=== PATIENT | male | born 1950 | race Caucasian/White ===

== ENCOUNTER → 2017-07-21 | Outpatient (CLI) | payer MEDICARE, MEDICAID, OTHER ==
--- NOTE | 2017-07-21 11:50 | RAD ---
Calcaneus, 2 views, 07/21/2017: History: Heel pain There is a moderate sized inferior calcaneal spur. There is also moderate spurring at the Achilles tendon insertion site posteriorly. No fracture is identified. There is mild spurring at the calcaneocuboid articulation. There is moderate nonspecific subcutaneous edema along the plantar aspect of the heel. IMPRESSION: 1. Moderate sized inferior calcaneal spur. 2. No acute bony abnormality is detected.
== END | disposition home or self-care (01) ==
LOC: DXRADRC 11:00
PROVIDERS: ATTEND Physician Assistant
DX: M77.31 Calcaneal spur, right foot (principal)
CPT/HCPCS: 73650

== ENCOUNTER 2019-07-16 01:41 | Emergency (ER) | payer MEDICARE, OTHER, MEDICAID ==
--- NOTE | 2019-07-16 02:00 | PHYS DOC ---
Adult General Chief Complaint Chief Complaint: URINARY RETENTION HPI HPI Patient is a 68-year-old male who presents with complaint of urinary retention. Patient had recently been seen at for the same complaint and has been self cathetering since that time. He states that this evening when he went to insert the catheter, he states that he encountered a blood clot and was not able to relieve himself of urine. He states the last time that he had inserted the catheter and had good return of urine was at about 3 PM yesterday. He does report to some very mild discomfort that he describes as like an itch to eat cat scratch in the catheter region. He is not aware of having cause any trauma with any of his previous catheterizations and reported no significant discomfort with catheterizing.[] Review of Systems Review of Systems Constitutional: Denies fever or chills [] Respiratory: Denies cough or shortness of breath [] Cardiovascular: No additional information not addressed in HPI [] : Positive urinary retention and hematuria [] Musculoskeletal: Denies back pain or joint pain [] Physical Exam Physical Exam Constitutional: Well developed, well nourished, no acute distress, non-toxic appearance. [] Cardiovascular:Heart rate regular rhythm, no murmur [] Lungs & Thorax: Bilateral breath sounds clear to auscultation [] Abdomen: Bowel sounds normal, soft, no tenderness. [] Skin: Warm, dry, no erythema, no rash. [] Neurologic: Alert and oriented X 3, no focal deficits noted. [] EKG EKG [] Radiology/Procedures Radiology/Procedures [] Course & Med Decision Making Course & Med Decision Making Pertinent Labs and Imaging studies reviewed. (See chart for details) [] Dragon Disclaimer Dragon Disclaimer This electronic medical record was generated, in whole or in part, using a voice recognition dictation system. Departure Departure: Impression: Primary Impression: Urinary retention Additional Impression: UTI (urinary tract infection) Disposition: 01 HOME, SELF-CARE Condition: STABLE Referrals: GILMA MEANS MD (PCP) Patient Instructions: Urinary Tract Infection Scripts Sulfamethoxazole/Trimethoprim (BACTRIM DS TABLET) 1 Each Tablet 1 TAB PO BID for infection, #20 TAB Prov: VERÓNICA BETANCOURT Jr. DO 07/16/19 Problem Qualifiers Additional Impression: UTI (urinary tract infection) Urinary tract infection type: site unspecified Hematuria presence: with hematuria Qualified Codes: N39.0 - Urinary tract infection, site not specified; R31.9 - Hematuria, unspecified VERÓNICA BETANCOURT Jr. DO Jul 16, 2019 02:00
[2019-07-16 03:27] LABS: BACTERIA,URINE FEW /HPF (0-FEW); BILIRUBIN,URINE NEG (NEG); CLARITY,URINE CLOUDY; COLOR,URINE BROWN; GLUCOSE,URINE NEG (NEG); NITRITE,URINE POS (NEG); RBC,URINE >40 /HPF (0-2); UROBILINOGEN,URINE 0.2 mg/dL (0.2 mg/dL); WBC,URINE >40 /HPF (0-4)
[2019-07-16 03:28] LABS: SQUAMOUS EPITHELIAL CELL,UR OCC /LPF
[2019-07-16] MEDS ORDERED: SULF1TAB24 PO (03:32)
[2019-07-16] MEDS ORDERED: SMZ/TMP 800/160MG TABLET. PO ONE (03:45)
[2019-07-18 03:30] VITALS: BP 146/76
== END 2019-07-16 03:40 | disposition home or self-care (01) ==
LOC: ER 01:41
DX: N39.0 Urinary tract infection, site not specified (principal); R31.9 Hematuria, unspecified; R33.9 Retention of urine, unspecified
CPT/HCPCS: 51702; 81001; 87086; 99284

== ENCOUNTER 2019-07-17 13:05 | Emergency (ER) | payer MEDICARE, OTHER, MEDICAID ==
[~2019-07-17] VITALS: Ht 177.8 cm; Wt 95.0 kg
[~2019-07-17 13:05] MED LIST: SULF1TAB24 PO
[2019-07-17] MEDS ORDERED: IV NORMAL SALINE 1,000ML 1,000 ML IV ONE (13:45)
--- NOTE | 2019-07-17 13:56 | PHYS DOC ---
Past History Past Medical History: Prostatitis Past Surgical History: Other Additional Past Surgical Histo: Prostat Alcohol Use: None Drug Use: None Adult General Chief Complaint Chief Complaint: URINE CATHETER PROBLEM HPI HPI 68-year-old male presents with penile pain. He was seen in this facility about a day and half ago with urinary retention. A Muniz was placed and he was treated for UTI. He was treated with Bactrim. Patient presents today because his penis is very painful. He states that even slight touch is uncomfortable. It is very uncomfortable when he tries to walk in the catheter moves around. He denies fever or chills. He has no other complaints. He has been taking his antibiotics. Review of Systems Review of Systems Constitutional: Denies fever or chills [] Eyes: Denies change in visual acuity, redness, or eye pain [] HENT: Denies nasal congestion or sore throat [] Respiratory: Denies cough or shortness of breath [] Cardiovascular: No additional information not addressed in HPI [] GI: Denies abdominal pain, nausea, vomiting, bloody stools or diarrhea [] : Penis pain[] Musculoskeletal: Denies back pain or joint pain [] Integument: Denies rash or skin lesions [] Neurologic: Denies headache, focal weakness or sensory changes [] Endocrine: Denies polyuria or polydipsia [] All other systems were reviewed and found to be within normal limits, except as documented in this note. Current Medications Current Medications Current Medications Medications (Trade) Dose Ordered Sig/Aramis Start Time Stop Time Status Last Admin Dose Admin Sodium Chloride 1,000 ml @ 1,000 mls/hr 1X ONCE 07/17/19 13:45 07/17/19 14:44 Allergies Allergies Allergies Coded Allergies Type Severity Reaction Last Updated Verified Penicillins Allergy Unknown 07/17/19 Yes Physical Exam Physical Exam Constitutional: Well developed, well nourished, no acute distress, non-toxic appearance. [] HENT: Normocephalic, atraumatic, bilateral external ears normal, oropharynx moist, no oral exudates, nose normal. [] Eyes: PERRLA, EOMI, conjunctiva normal, no discharge. [] Neck: Normal range of motion, no tenderness, supple, no stridor. [] Cardiovascular:Heart rate regular rhythm, no murmur [] Lungs & Thorax: Bilateral breath sounds clear to auscultation [] Abdomen: Bowel sounds normal, soft, no tenderness, no masses, no pulsatile masses. [] Skin: Warm, dry, no erythema, no rash. [] Back: No tenderness, no CVA tenderness. [] Extremities: No tenderness, no cyanosis, no clubbing, ROM intact, no edema. [] Neurologic: Alert and oriented X 3, normal motor function, normal sensory function, no focal deficits noted. [] Psychologic: Affect normal, judgement normal, mood normal. : Normal external exam, circumcised. Tenderness of the sterling and tip of penis. No discharge or bleeding.[] Current Patient Data Vital Signs Vital Signs Date Time Temp Pulse Resp B/P (MAP) Pulse Ox O2 Delivery O2 Flow Rate FiO2 07/17/19 13:26 97.8 70 18 96 Room Air EKG EKG [] Radiology/Procedures Radiology/Procedures [] Course & Med Decision Making Course & Med Decision Making Pertinent Labs and Imaging studies reviewed. (See chart for details) The patient's labs are unremarkable. His urine is still suggestive of UTI, but he has less bacteria. The patient is not taken and buttocks long enough to be certain if current treatment will work or not. The patient's pain is likely due to the irritation of the catheter. We have removed the catheter for comfort. The patient has not urinated in the ED, but would like to go home and see how things go. His bladder scan showed under 200 mL. He is stable for discharge at this time. [] Dragon Disclaimer Dragon Disclaimer This electronic medical record was generated, in whole or in part, using a voice recognition dictation system. Departure Departure: Impression: Primary Impression: Urinary catheter complication Additional Impression: Penis pain Disposition: HOME, SELF-CARE Condition: STABLE Referrals: GILMA MEANS MD (PCP) Problem Qualifiers EZIO CARDENAS DO Jul 17, 2019 13:56
[2019-07-17 14:10] LABS: BASO % 1 % (0-3); EOS # 0.2 x10^3/uL (0.0-0.7); EOS % 2 % (0-3); HEMATOCRIT 48.3 % (39.0-53.0); HEMOGLOBIN 16.3 g/dL (13.0-17.5); LYMPH # 0.5 x10^3/uL (1.0-4.8); LYMPH % 5 % (24-48); MEAN CORPUSCULAR HEMOGLOBIN 32 pg (25-35); MEAN CORPUSCULAR HGB CONC 34 g/dL (31-37); MEAN CORPUSCULAR VOLUME 96 fL (79-100); MONO % 10 % (0-9); NEUT % 83 % (31-73); PLATELET COUNT 228 x10^3/uL (140-400); RED BLOOD COUNT 5.02 x10^6/uL (4.30-5.70); RED CELL DISTRIBUTION WIDTH 14.3 % (11.5-14.5); WHITE BLOOD COUNT 9.7 x10^3/uL (4.0-11.0)
[2019-07-17 14:23] LABS: BACTERIA,URINE FEW /HPF (0-FEW); BILIRUBIN,URINE NEG (NEG); CLARITY,URINE CLOUDY; COLOR,URINE YELLOW; GLUCOSE,URINE NEG (NEG); NITRITE,URINE NEG (NEG); RBC,URINE >40 /HPF (0-2); SQUAMOUS EPITHELIAL CELL,UR OCC /LPF; UROBILINOGEN,URINE 0.2 mg/dL (0.2 mg/dL); WBC,URINE 20-40 /HPF (0-4)
[2019-07-17 14:23] LABS: ALBUMIN 3.6 g/dL (3.4-5.0); ALBUMIN/GLOBULIN RATIO 0.9 (1.0-1.7); CALCIUM 9.1 mg/dL (8.5-10.1); CREATININE 1.2 mg/dL (0.7-1.3); GFR 60.4; POTASSIUM 4.3 mmol/L (3.5-5.1); TOTAL BILIRUBIN 1.1 mg/dL (0.2-1.0); TOTAL PROTEIN 7.8 g/dL (6.4-8.2)
[2019-07-17 16:31] VITALS: BP 117/69
== END 2019-07-17 16:46 | disposition home or self-care (01) ==
LOC: ER 13:05
DX: T83.098A Other mechanical complication of other urinary catheter, initial encounter (principal); N48.89 Other specified disorders of penis; R33.9 Retention of urine, unspecified; Z88.0 Allergy status to penicillin
CPT/HCPCS: 36415; 80053; 81001; 85025; 99285-25; J7030

== ENCOUNTER 2019-07-17 19:31 | Emergency (ER) | payer MEDICARE, MEDICAID ==
[~2019-07-17] VITALS: Ht 177.8 cm; Wt 95.0 kg
--- NOTE | 2019-07-17 19:56 | ED.ADGEN ---
Past History Past Medical History: Prostatitis, UTI Past Surgical History: Other Additional Past Surgical Histo: Prostat Alcohol Use: None Drug Use: None Adult General Chief Complaint Chief Complaint "...I got to have the freire back in... " HPI HPI Patient is a 68 year old male who presents with above hx and complaints urinary retention after Freire removed. Patient does have follow-up urology. Pt currently on antibiotics for UTI. Patient has had problems of prior prostate issues. Review of Systems Review of Systems Constitutional: Denies fever or chills [] Eyes: Denies change in visual acuity, redness, or eye pain [] HENT: Denies nasal congestion or sore throat [] Respiratory: Denies cough or shortness of breath [] Cardiovascular: No additional information not addressed in HPI [] GI: Distended bladder and lower pelvic abdominal pain. Denies, nausea, vomiting, bloody stools or diarrhea [] : Complaints of dysuria and urinary retention Musculoskeletal: Denies back pain or joint pain [] Integument: Denies rash or skin lesions [] Neurologic: Denies headache, focal weakness or sensory changes [] Endocrine: Denies polyuria or polydipsia [] All other systems were reviewed and found to be within normal limits, except as documented in this note. Family History Family History Noncontributory Current Medications Current Medications Current Medications Medications (Trade) Dose Ordered Sig/Aramis Start Time Stop Time Status Last Admin Dose Admin Phenazopyridine HCl (Pyridium) 200 mg 1X ONCE 07/17/19 20:00 07/17/19 20:01 DC 07/17/19 20:32 200 MG Allergies Allergies Allergies Coded Allergies Type Severity Reaction Last Updated Verified Penicillins Allergy Unknown 07/17/19 Yes Physical Exam Physical Exam Constitutional: inacute distress, non-toxic appearance. [] HENT: Normocephalic, atraumatic, bilateral external ears normal, oropharynx moist, no oral exudates, nose normal. [] Eyes: PERRLA, EOMI, conjunctiva normal, no discharge. [] Neck: Normal range of motion, no tenderness, supple, no stridor. [] Cardiovascular:Heart rate regular rhythm, no murmur []PMI to the left Lungs & Thorax: Bilateral breath sounds equal at apex on auscultation [] Abdomen: Bowel sounds normal, soft, suprapubic tenderness, distended bladder, no masses, no pulsatile masses. [] Circumcised male. Patient declines rectal exam Skin: Warm, dry, no erythema, no rash. [] Back: No tenderness, no CVA tenderness. [] Extremities: No tenderness, no cyanosis, no clubbing, ROM intact, no edema. [] Arthritic changes. Neurologic: Alert and oriented X 3, normal motor function, normal sensory function, no focal deficits noted. [] Psychologic: Affect anxious, judgement normal, mood normal. [] Current Patient Data Vital Signs Vital Signs Date Time Temp Pulse Resp B/P (MAP) Pulse Ox O2 Delivery O2 Flow Rate FiO2 07/17/19 21:34 76 18 143/76 (98) 98 Room Air 07/17/19 19:50 97.9 Lab Results Laboratory Tests Test 07/17/19 20:14 Urine Collection Type U cath Urine Color Yellow Urine Clarity Hazy Urine pH 6.0 Urine Specific [place] 1.020 Urine Protein Trace (NEG-TRACE) Urine Glucose (UA) Neg mg/dL (NEG) Urine Ketones (Stick) Neg mg/dL (NEG) Urine Blood Mod (NEG) Urine Nitrite Neg (NEG) Urine Bilirubin Neg (NEG) Urine Urobilinogen Dipstick 0.2 mg/dL (0.2 mg/dL) Urine Leukocyte Esterase Trace (NEG) Urine RBC >40 /HPF (0-2) Urine WBC 11-20 /HPF (0-4) Urine Squamous Epithelial Cells Occ /LPF Urine Bacteria Mod /HPF (0-FEW) Urine Mucus Slight /LPF EKG EKG [] Radiology/Procedures Radiology/Procedures [] Course & Med Decision Making Course & Med Decision Making Pertinent Labs and Imaging studies reviewed. (See chart for details) Freire placed with return of approximately 500 mL immediately with relief of his lower pelvic abdomen pain. Patient to take antibiotics as previously directed. Patient keep follow-up with urology. Patient consider over the counter use of Pyridium for Freire discomfort. Return if any concerns. [] Final Impression Final Impression 1. Urinary Retention 2. UTI[] Dragon Disclaimer Dragon Disclaimer This electronic medical record was generated, in whole or in part, using a voice recognition dictation system. Dragon Disclaimer This chart was dictated in whole or in part using Voice Recognition software in a busy, high-work load, and often noisy Emergency Department environment. It may contain unintended and wholly unrecognized errors or omissions. CHRISTOPHER COSTELLO MD Jul 17, 2019 19:56
[2019-07-17] MEDS ORDERED: PHENAZOPYRIDINE 200 MG TABLET. PO ONE (20:00)
[2019-07-17 21:08] LABS: BILIRUBIN,URINE NEG (NEG); CLARITY,URINE HAZY; COLOR,URINE YELLOW; GLUCOSE,URINE NEG (NEG); NITRITE,URINE NEG (NEG); RBC,URINE >40 /HPF (0-2); UROBILINOGEN,URINE 0.2 mg/dL (0.2 mg/dL)
[2019-07-17 21:09] LABS: BACTERIA,URINE MOD /HPF (0-FEW); SQUAMOUS EPITHELIAL CELL,UR OCC /LPF
[2019-07-17 21:34] VITALS: BP 143/76
== END 2019-07-17 21:42 | disposition home or self-care (01) ==
LOC: ER 19:31
DX: N39.0 Urinary tract infection, site not specified (principal); R33.9 Retention of urine, unspecified; Z87.440 Personal history of urinary (tract) infections; Z88.0 Allergy status to penicillin
CPT/HCPCS: 51702; 81001; 87086; 99284

== ENCOUNTER 2019-11-01 16:57 | Emergency (ER) | payer MEDICARE, MEDICAID ==
[~2019-11-01] VITALS: Ht 177.8 cm; Wt 95.0 kg
[2019-11-01 17:19] VITALS: BP 138/61
--- NOTE | 2019-11-01 17:42 | PHYS DOC ---
Past History Past Medical History: Prostatitis Past Surgical History: Other Additional Past Surgical Histo: Prostat Alcohol Use: None Drug Use: None Adult General Chief Complaint Chief Complaint: TESTICULAR PAIN OR INJURY HPI HPI Patient is a 68-year-old male who presented to ER today for evaluation of left t esticular pain and swelling that he first noted at 9 a.m. this morning. Patient denies any fever, no nausea vomiting, no abdominal pain. Patient had prostate surgery 2 months ago at [facility]. he denies any penile discharge, no urine symptom, no painful urination. aLL OTHER ros IS NEGATIVE UNLESS OTHERWISE NOTED IN hpi Review of Systems Review of Systems See above Current Medications Current Medications Current Medications Medications (Trade) Dose Ordered Sig/Aramis Start Time Stop Time Status Last Admin Dose Admin Ketorolac Tromethamine (Toradol Im) 60 mg 1X ONCE 11/01/19 17:45 11/01/19 17:46 Allergies Allergies Allergies Coded Allergies Type Severity Reaction Last Updated Verified Penicillins Allergy Unknown 07/17/19 Yes Physical Exam Physical Exam See above Constitutional: Well developed, well nourished, no acute distress, non-toxic appearance. [] HENT: Normocephalic, atraumatic, bilateral external ears normal, oropharynx moist, no oral exudates, nose normal. [] Eyes: PERRLA, EOMI, conjunctiva normal, no discharge. [] Neck: Normal range of motion, no tenderness, supple, no stridor. [] Cardiovascular:Heart rate regular rhythm, no murmur [] Lungs & Thorax: Bilateral breath sounds clear to auscultation [] Abdomen: Bowel sounds normal, soft, no tenderness, no masses, no pulsatile masses. [] Skin: Warm, dry, no erythema, no rash. [] Back: No tenderness, no CVA tenderness. [] Extremities: No tenderness, no cyanosis, no clubbing, ROM intact, no edema. [] Neurologic: Alert and oriented X 3, normal motor function, normal sensory function, no focal deficits noted. [] Psychologic: Affect normal, judgement normal, mood normal. [] : CIRCUMCIZED, LEFT TESTICULAR IS TENDER TO PALPATION, LEFT SCROTUM IS MILD SWOLLEN AND ERYTHEMA. NO PENILE DISCHARGE. Current Patient Data Vital Signs Vital Signs Date Time Temp Pulse Resp B/P (MAP) Pulse Ox O2 Delivery O2 Flow Rate FiO2 11/01/19 17:19 98.5 74 18 99 EKG EKG [] Radiology/Procedures Radiology/Procedures [][place] [address] IMAGING REPORT Signed PATIENT: PARVEEN MALDONADOOUNT: [id number] : 1950 LOCATION: ER AGE: 68 SEX: M EXAM STATUS: REG ER ORD. PHYSICIAN: JATINDER LSOAN DO REASON: LEFT TESTICULAR PAIN SINCE 9 AM TODAY PROCEDURE: TESTICULAR/SCROTUM Testicular ultrasound and ultrasound testicular Doppler with spectral analysis HISTORY: Left testicular pain since 9:00 AM Sonographic examination of scrotal contents and testes was performed and multiple static images were obtained. There is mild hydroceles bilaterally. The testes appear normal with normal blood flow. The right testis measures 4.0 x 2.9 x 2.5 cm. Left testis measures 4.2 x 2.2 x 3 x 2 cm. There is a small epididymal cyst on the right. IMPRESSION: Small hydroceles bilaterally. No significant findings. Electronically signed by: Marta Shabazz III, MD (11/01/2019 5:56 PM) [facility] DICTATED AND SIGNED BY: MARTA SHABAZZ III, MD DATE: 11/01/19 724 CC: YFN SHEPHERD; JATINDER SLOAN DO ~ Course & Med Decision Making Course & Med Decision Making Pertinent Labs and Imaging studies reviewed. (See chart for details) Patient said he felt much better after toradol shot. Dragon Disclaimer Dragon Disclaimer This electronic medical record was generated, in whole or in part, using a voice recognition dictation system. Departure Departure: Impression: Primary Impression: Cellulitis, scrotum Disposition: HOME, SELF-CARE Condition: STABLE Referrals: YFN SHEPHERD (PCP) follow up with your doctor on Tuesday Patient Instructions: Cellulitis, Scrotal Swelling Scripts Doxycycline Hyclate (DOXYCYCLINE HYCLATE) 100 Mg Capsule 1 CAP PO BID for cellulitis for 10 Days, #20 CAP Prov: JATINDER SLOAN DO 11/01/19 JATINDER SLOAN DO Nov 01, 2019 17:42
[2019-11-01] MEDS ORDERED: KETOROLAC 60 MG/2 ML VIAL. IM ONE (17:45)
--- NOTE | 2019-11-01 17:59 | RAD ---
Testicular ultrasound and ultrasound testicular Doppler with spectral analysis HISTORY: Left testicular pain since 9:00 AM Sonographic examination of scrotal contents and testes was performed and multiple static images were obtained. There is mild hydroceles bilaterally. The testes appear normal with normal blood flow. The right testis measures 4.0 x 2.9 x 2.5 cm. Left testis measures 4.2 x 2.2 x 3 x 2 cm. There is a small epididymal cyst on the right. IMPRESSION: Small hydroceles bilaterally. No significant findings. Electronically signed by: Santiago Rodriguez III, MD (11/01/2019 5:56 PM) [facility]
[2019-11-01] MEDS ORDERED: DOXY100C2 PO (19:00)
== END 2019-11-01 19:07 | disposition home or self-care (01) ==
LOC: ER 16:57
DX: N49.2 Inflammatory disorders of scrotum (principal); Z88.0 Allergy status to penicillin
CPT/HCPCS: 76870; 96372; 99284; J1885

== ENCOUNTER → 2021-03-25 | Outpatient (CLI) | payer MEDICARE, MEDICAID ==
[~2021-03-25] MED LIST changes: +DOXY100C2 PO; +IOHEXOL 240 MG/ML 50ML VIAL. ONE; +IOHEXOL 240 MG/ML 50ML VIAL. PO ONE; +IOHEXOL 300 MG/ML 75 ML VIAL. IV ONE
[2021-03-25 10:26] LABS: BASO % 0 % (0-3); EOS # 0.2 x10^3/uL (0.0-0.7); EOS % 2 % (0-3); HEMATOCRIT 45.5 % (39.0-53.0); HEMOGLOBIN 15.1 g/dL (13.0-17.5); LYMPH # 1.5 x10^3/uL (1.0-4.8); LYMPH % 14 % (24-48); MEAN CORPUSCULAR HEMOGLOBIN 32 pg (25-35); MEAN CORPUSCULAR HGB CONC 33 g/dL (31-37); MEAN CORPUSCULAR VOLUME 96 fL (79-100); MONO # 1.3 x10^3/uL (0.0-1.1); MONO % 12 % (0-9); NEUT # 7.6 x10^3uL (1.8-7.7); NEUT % 72 % (31-73); PLATELET COUNT 265 x10^3/uL (140-400); RED BLOOD COUNT 4.72 x10^6/uL (4.30-5.70); RED CELL DISTRIBUTION WIDTH 14.5 % (11.5-14.5); WHITE BLOOD COUNT 10.6 x10^3/uL (4.0-11.0)
[2021-03-25 10:34] LABS: ALBUMIN 3.6 g/dL (3.4-5.0); ALBUMIN/GLOBULIN RATIO 0.9 (1.0-1.7); CALCIUM 8.4 mg/dL (8.5-10.1); GFR 74.1; POTASSIUM 4.1 mmol/L (3.5-5.1); TOTAL BILIRUBIN 1.2 mg/dL (0.2-1.0); TOTAL PROTEIN 7.4 g/dL (6.4-8.2)
--- NOTE | 2021-03-25 11:06 | RAD ---
EXAM: Abdomen and pelvis CT with intravenous contrast. HISTORY: Left lower quadrant pain. TECHNIQUE: Computed tomographic images of the abdomen and pelvis were obtained following the administ ration of intravenous contrast. Multiplanar reformatting was performed. *One or more of the following individualized dose reduction techniques were utilized for this examina tion: 1. Automated exposure control. 2. Adjustment of the mA and/or kV according to patient size. 3. Use of iterative reconstruction technique. COMPARISON: None. FINDINGS: Evaluation of the lower thorax demonstrates no infiltrate or pleural effusion. The heart is normal in size. There is no suspicious hepatic lesion. The gallbladder is unremarkable. There is a tiny incidental proximal duodenum diverticulum. The pancreas, spleen and adrenal glands ar e unremarkable. There is a 5 mm cyst within the posterior mid zone of the left kidney. There are 3 mm and 4 mm cyst within the right kidney. No suspicious renal lesion is seen. There is no hydronephrosi s. There is no appendicitis. There is no bowel obstruction. There is colonic diverticulosis. There is mi nimal stranding surrounding the descending-sigmoid colon junction suggesting diverticulitis. There is no abscess or free air. The aorta is normal in caliber. There is no lymphadenopathy. The bladder is unremarkable. The prostat e is unremarkable. There are degenerative changes involving the spine. There is no acute or suspiciou s osseous finding. IMPRESSION: 1. Colonic diverticulosis with suspected superimposed mild diverticulitis involving the descending-si gmoid junction. No drainable fluid collection or free air is seen. 2. Small simple appearing renal cysts. Follow-up is not routinely performed for simple cysts. Electronically signed by: Judy Patel MD (03/25/2021 11:03 AM) [id number]
[2021-03-25 11:22] LABS: COLOR,URINE YELLOW
[2021-03-25 11:23] LABS: BACTERIA,URINE MOD /HPF (0-FEW); BILIRUBIN,URINE NEG (NEG); CLARITY,URINE CLEAR; GLUCOSE,URINE NEG (NEG); NITRITE,URINE POS (NEG)
[2021-03-25 11:24] LABS: SPERM,URINE PRESENT /HPF
[2021-03-25 11:40] LABS: SEDIMENTATION RATE 18 (0-15)
== END ==
LOC: CT 09:30
PROVIDERS: ATTEND Physician Assistant
DX: K57.30 Diverticulosis of large intestine without perforation or abscess without bleeding (principal); N28.1 Cyst of kidney, acquired
CPT/HCPCS: 36415; 74177; 80053; 81001; 82150; 83690; 85025; 85651; 87086; Q9967